=== PATIENT | male | born 1970 | race Caucasian/White ===

== ENCOUNTER 2017-08-03 07:35 | Emergency (ER) | payer BC ==
--- NOTE | 2017-08-03 08:04 | Emergency Department Record ---
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 Patient had a spinning sensation worse with laying down and when he got up today more spinning sensation. Onset/Timin -: Days(s) Timing: Awoke with symptoms History of Same: Yes Improves With: Nothing Worsens With: Nothing - Sameer Coma Scale Eye Response: (4) Open spontaneously Motor Response: (6) Obeys commands Verbal Response: (5) Oriented [place] Total: 15 - Related Data Previous Rx's Medication Instructions Recorded Meclizine HCl [Antivert] 25 mg PO Q8H #20 tablet 08/03/17 Allergies Allergy/AdvReac Type Severity Reaction Status Date / Time lorazepam [From Ativan] Allergy ALTERED Verified 08/03/17 07:46 MENTAL STATUS Travel Screening - Travel/Exposure Within Last 30 Days Have you traveled within the last 30 days?: No - Travel/Exposure Within Last Year Have you traveled outside the [place] in the last year?: No - Additonal Travel Details Have you been exposed to anyone with a communicable illness?: No - Travel Symptoms Symptom Screening: None Review of Systems Reviewed: No additional complaints except as noted below Constitutional: Reports: As per HPI. Denies: Chills, Fever, Malaise, Night sweats, Weakness, Weight change Eyes: Reports: As per HPI. Denies: Eye discharge, Eye pain, Photophobia, Vision change ENT: Reports: As per HPI. Denies: Congestion, Dental pain, Ear pain, Epistaxis , Hearing loss, Throat pain Respiratory: Reports: As per HPI. Denies: Cough, Dyspnea, Hemoptysis, Stridor, Wheezes Cardiovascular: Reports: As per HPI. Denies: Arrhythmia, Chest pain, Dyspnea on exertion, Edema, Murmurs, Orthopnea, Palpitations, Paroxysmal nocturnal dyspnea, Rheumatic Fever, Syncope Endocrine: Reports: As per HPI. Denies: Fatigue, Heat or cold intolerance, Polydipsia, Polyuria Gastrointestinal: Reports: As per HPI. Denies: Abdominal pain, Constipation, Diarrhea, Hematemesis, Hematochezia, Melena, Nausea, Vomiting Genitourinary: Reports: As per HPI. Denies: Dysuria, Frequency, Hematuria, Incontinence, Retention, Testicular pain, Testicular mass, Urgency Musculoskeletal: Reports: As per HPI. Denies: Arthralgia, Back pain, Gout, Joint swelling, Myalgia, Neck pain Skin: Reports: As per HPI. Denies: Bruising, Change in color, Change in hair/ nails, Lesions, Pruritus, Rash Neurological: Reports: As per HPI. Denies: Abnormal gait, Confusion, Headache, Numbness, Paresthesias, Seizure, Tingling, Tremors, Vertigo, Weakness Psychiatric: Reports: As per HPI. Denies: Anxiety, Auditory hallucinations, Depression, Homicidal thoughts, Suicidal thoughts, Visual hallucinations Hematological/Lymphatic: Reports: As per HPI. Denies: Anemia, Blood Clots, Easy bleeding, Easy bruising, Swollen glands Past Medical History - SOCIAL HISTORY Smoking Status: Never smoker Alcohol Use: None Drug Use: None - RESPIRATORY Hx Respiratory Disorders: No - CARDIOVASCULAR Hx Cardio Disorders: Yes Hx Hypertension: Yes - NEURO Hx Neuro Disorders: No - GI Hx GI Disorders: Yes Hx Reflux: Yes - Hx Genitourinary Disorders: Yes Comment:: Right kidney removed related to trauma - ENDOCRINE Hx Endocrine Disorders: No - MUSCULOSKELETAL Hx Musculoskeletal Disorders: Yes Comment:: L5 herniated disc - PSYCH Hx Psych Problems: Yes Hx Behavior Problems: Yes Comment:: bipolar - HEMATOLOGY/ONCOLOGY Hx Hematology/Oncology Disorders: No Family Medical History Any Significant Family History?: Yes Hx Cancer: Mother Hx Diabetes: Grandparents Hx Heart Disease: Father Physical Exam - General General Appearance: Alert, Oriented x3, Cooperative, No acute distress - Head Head exam: Normal inspection - Eye Eye exam: Normal appearance, PERRL Pupils: Normal accommodation - ENT ENT exam: Normal exam, Mucous membranes moist, Normal external ear exam, Normal orophraynx, TM's normal bilaterally Ear exam: Normal external inspection. negative: External canal tenderness Nasal Exam: Normal inspection. negative: Discharge, Sinus tenderness Mouth exam: Normal external inspection, Tongue normal Teeth exam: Normal inspection. negative: Dental caries Throat exam: Normal inspection. negative: Tonsillar erythema, Tonsillar exudate - Neck Neck exam: Normal inspection, Full ROM. negative: Tenderness - Respiratory Respiratory exam: Normal lung sounds bilaterally. negative: Respiratory distress - Cardiovascular Cardiovascular Exam: Regular rate, Normal rhythm, Normal heart sounds - GI/Abdominal GI/Abdominal exam: Soft, Normal bowel sounds. negative: Tenderness - Rectal Rectal exam: Deferred - exam: Deferred - Extremities Extremities exam: Normal inspection, Full ROM, Normal capillary refill. negative: Tenderness - Back Back exam: Reports: Normal inspection, Full ROM. Denies: Muscle spasm, Rash noted, Tenderness - Neurological Neurological exam: Alert, Normal gait, Oriented X3, Reflexes normal - Psychiatric Psychiatric exam: Normal affect, Normal mood - Skin Skin exam: Dry, Intact, Normal color, Warm Course Vital Signs 08/03/17 07:40 Temperature 98.0 F Pulse Rate 102 H Respiratory 20 Rate Blood Pressure 130/92 Pulse Ox 98 - Reevaluation(s) Reevaluation #1: No chest pain and no URI symptoms and no NVD 08/03/17 08:28 Medical Decision Making - Data Complexity MDM Data: EKG Ordered and/or Reviewed (NSR, no acute changes) Disposition Clinical Impression: Substance abuse Hypertension Qualifiers: Hypertension type: unspecified Qualified Code(s): I10 - Essential (primary) hypertension Disposition: Home, Self-Care Condition: (1) Good Instructions: Benign Paroxysmal Positional Vertigo (ED) Additional Instructions: follow up with family in 5 days use antivert three times a day stop cocaine and meth follow up with counciling Prescriptions: Meclizine HCl [Antivert] 25 mg PO Q8H #20 tablet Forms: Patient Portal Access Time of Disposition: 08:27 Quality - Quality Measures Quality Measures: N/A - Blood Pressure Screening Does Patient Have Any of the Following: No Blood Pressure Classification: Hypertensive Reading Systolic Measurement: 130 Diastolic Measurement: 92 Screening for High Blood Pressure: < Pre-Hypertensive BP, F/U Documented > [ G8950] Pre-Hypertensive Follow-up Interventions: Referral to alternative/primary care provider.
== END 2017-08-03 08:34 | disposition home or self-care (01) ==
LOC: ER 07:35
DX: F15.10 Other stimulant abuse, uncomplicated (principal); F14.10 Cocaine abuse, uncomplicated; R42 Dizziness and giddiness; I10 Essential (primary) hypertension
CPT/HCPCS: 93005; 93010; 99284

== ENCOUNTER 2017-08-07 21:38 | Observation (INO) | payer BC ==
[2017-08-07 22:18] LABS: URINE APPEARANCE CLEAR; URINE BILIRUBIN NEGATIVE (NEGATIVE); URINE BLOOD NEGATIVE (NEGATIVE); URINE COLOR YELLOW; URINE GLUCOSE (UA) NEGATIVE (NEGATIVE); URINE KETONE NEGATIVE (NEGATIVE); URINE LEUKOCYTE ESTERASE NEGATIVE (NEGATIVE); URINE NITRITE NEGATIVE (NEGATIVE); URINE PROTEIN NEGATIVE (NEGATIVE); URINE UROBILINOGEN 0.2 E.U./dL (0.20 - 1.00)
[2017-08-07] MEDS ORDERED: 0.9 % SODIUM CHLORIDE 1,000 ML BAG IV ONE (22:32)
[2017-08-07] MEDS ORDERED: HYDROMORPHONE HCL 2 MG/ML VIAL IVP ONE ×2 (22:33→23:24)
[2017-08-07] MEDS ORDERED: ONDANSETRON HCL IV 4 MG/2 ML VIAL IVP ONE (22:33)
[2017-08-07 22:42] LABS: BASO % 0.3 % (0-6); EOS % 2.3 % (0-6); GRAN % 64.1 % (47-80); HEMATOCRIT 41.3 % (42.0-52.0); HEMOGLOBIN 14.4 gm/dl (14.0-18.0); LYMPH % 24.6 % (16-45); MEAN CELL VOLUME 87.3 fl (81-97); MEAN CORPUSCULAR HEMOGLOBIN 30.4 pg (27-33); MEAN CORPUSCULAR HGB CONC 34.9 g/dl (32-36); MEAN PLATELET VOLUME 9.7 fl (7.4-10.4); MONO % 8.7 % (0-9); PLATELET COUNT 308 K/uL (130-400); RED BLOOD COUNT 4.73 M/uL (4.40-5.70); RED CELL DISTRIBUTION WIDTH 12.8 % (11.5-14.5); WHITE BLOOD COUNT W/O DIFF 11.8 K/uL (4.2-12.2)
[2017-08-07 23:01] LABS: ALB/GLOB RATIO 1.3 (1.1-1.8); ALBUMIN 3.7 g/dL (4.0-5.0); ALKALINE PHOSPHATASE 81 U/L (40-129); ALT/SGPT 44 U/L (<41); AST/SGOT 27 U/L (10.0-50.0); BLOOD UREA NITROGEN 12 mg/dL (6-20); CREATININE 0.8 mg/dL (0.7-1.2); EST GLOMERULAR FILTRATION RATE > 60 mL/min; GLUCOSE,RANDOM 129 mg/dL (74-109); LIPASE 111 U/L (13-60); TOTAL PROTEIN 6.6 g/dL (6.6-8.7)
[2017-08-08] MEDS ORDERED: KETOROLAC 30 MG/ML VIAL IVP ONE (01:26)
[2017-08-08] MEDS ORDERED: HYDROMORPHONE HCL 2 MG/ML VIAL IVP ONE (02:18)
--- NOTE | 2017-08-08 02:32 | Emergency Department Record ---
History of Present Illness - General Chief Complaint: Back Pain/Injury Stated Complaint: BACK AND ABDOMINAL PAIN Time Seen by Provider: 08/07/17 22:28 Source: Patient Mode of Arrival: Ambulatory Limitations: No limitations - History of Present Illness Initial Comments: pt has severe abd pain that is constant. he states all week it has been hurting after he eats. no c/v. he does have nausea. he states he always has loose stools after he eats Onset/Timin -: Days(s) Similar Symptoms Previously: Yes Radiation: Abdomen Severity scale (1-10): 7 Quality: Sharp Consistency: Constant Improves With: None Worsens With: Deep breaths/cough Associated Symptoms: Denies other symptoms Treatments Prior to Arrival: NSAIDS - Related Data Allergies Allergy/AdvReac Type Severity Reaction Status Date / Time lorazepam [From Ativan] Allergy ALTERED Verified 08/03/17 07:46 MENTAL STATUS Travel Screening - Travel/Exposure Within Last 30 Days Have you traveled within the last 30 days?: No - Travel Symptoms Symptom Screening: None Review of Systems Reviewed: No additional complaints except as noted below Constitutional: Reports: As per HPI. Denies: Chills, Fever, Malaise, Night sweats, Weakness, Weight change Eyes: Reports: As per HPI. Denies: Eye discharge, Eye pain, Photophobia, Vision change ENT: Reports: As per HPI. Denies: Congestion, Dental pain, Ear pain, Epistaxis , Hearing loss, Throat pain Respiratory: Reports: As per HPI. Denies: Cough, Dyspnea, Hemoptysis, Stridor, Wheezes Cardiovascular: Reports: As per HPI. Denies: Arrhythmia, Chest pain, Dyspnea on exertion, Edema, Murmurs, Orthopnea, Palpitations, Paroxysmal nocturnal dyspnea, Rheumatic Fever, Syncope Endocrine: Reports: As per HPI. Denies: Fatigue, Heat or cold intolerance, Polydipsia, Polyuria Gastrointestinal: Reports: As per HPI, Abdominal pain. Denies: Constipation, Diarrhea, Hematemesis, Hematochezia, Melena, Nausea, Vomiting Genitourinary: Reports: As per HPI. Denies: Dysuria, Frequency, Hematuria, Incontinence, Retention, Testicular pain, Testicular mass, Urgency Musculoskeletal: Reports: As per HPI. Denies: Arthralgia, Back pain, Gout, Joint swelling, Myalgia, Neck pain Skin: Reports: As per HPI. Denies: Bruising, Change in color, Change in hair/ nails, Lesions, Pruritus, Rash Neurological: Reports: As per HPI. Denies: Abnormal gait, Confusion, Headache, Numbness, Paresthesias, Seizure, Tingling, Tremors, Vertigo, Weakness Psychiatric: Reports: As per HPI. Denies: Anxiety, Auditory hallucinations, Depression, Homicidal thoughts, Suicidal thoughts, Visual hallucinations Hematological/Lymphatic: Reports: As per HPI. Denies: Anemia, Blood Clots, Easy bleeding, Easy bruising, Swollen glands Past Medical History - SOCIAL HISTORY Smoking Status: Never smoker - RESPIRATORY Hx Respiratory Disorders: No - CARDIOVASCULAR Hx Cardio Disorders: Yes Hx Hypertension: Yes - NEURO Hx Neuro Disorders: No - GI Hx GI Disorders: Yes Hx Reflux: Yes Comment:: abd hernia - Hx Genitourinary Disorders: Yes Comment:: Right kidney removed related to trauma - ENDOCRINE Hx Endocrine Disorders: No - MUSCULOSKELETAL Hx Musculoskeletal Disorders: Yes Comment:: L5 herniated disc - PSYCH Hx Psych Problems: Yes Hx Behavior Problems: Yes Comment:: bipolar - HEMATOLOGY/ONCOLOGY Hx Hematology/Oncology Disorders: No Family Medical History Any Significant Family History?: Yes Hx Cancer: Mother Hx Diabetes: Grandparents Hx Heart Disease: Father Physical Exam - General General Appearance: Alert, Oriented x3, Cooperative, Mild distress - Head Head exam: Normal inspection - Eye Eye exam: Normal appearance, PERRL, EOMI Pupils: Normal accommodation - ENT ENT exam: Normal exam, Mucous membranes moist, Normal external ear exam, Normal orophraynx Ear exam: Normal external inspection. negative: External canal tenderness Nasal Exam: Normal inspection. negative: Discharge, Sinus tenderness Mouth exam: Normal external inspection, Tongue normal Teeth exam: Normal inspection. negative: Dental caries Throat exam: Normal inspection. negative: Tonsillar erythema, Tonsillar exudate - Neck Neck exam: Normal inspection, Full ROM. negative: Tenderness - Respiratory Respiratory exam: Normal lung sounds bilaterally. negative: Respiratory distress - Cardiovascular Cardiovascular Exam: Regular rate, Normal rhythm, Normal heart sounds - GI/Abdominal GI/Abdominal exam: Soft, Normal bowel sounds, Guarding, Tenderness - Rectal Rectal exam: Deferred - exam: Deferred - Extremities Extremities exam: Normal inspection, Full ROM, Normal capillary refill. negative: Tenderness - Back Back exam: Reports: Normal inspection, Full ROM. Denies: Muscle spasm, Rash noted, Tenderness - Neurological Neurological exam: Alert, CN II-XII intact, Normal gait, Oriented X3 - Psychiatric Psychiatric exam: Normal affect, Normal mood - Skin Skin exam: Dry, Intact, Normal color, Warm Course Vital Signs 08/07/17 08/07/17 08/07/17 21:47 22:49 23:37 Temperature 98.5 F Pulse Rate [ 93 H 88 90 Pulse Ox Probe] Respiratory 24 22 18 Rate Blood Pressure 147/95 [Left Arm] Blood Pressure 127/88 125/89 [Right Arm] Pulse Ox 97 94 L 08/08/17 08/08/17 00:24 01:35 Temperature Pulse Rate [ 95 H 70 Pulse Ox Probe] Respiratory 16 18 Rate Blood Pressure [Left Arm] Blood Pressure 112/79 116/82 [Right Arm] Pulse Ox 96 93 L - Reevaluation(s) Reevaluation #1: 08/08/17 02:36 unable to get pts pain under control without iv dilaudid Medical Decision Making - Lab Data Result diagrams: 08/07/17 22:36 08/07/17 22:36 Lab Results 08/07/17 08/07/17 08/07/17 Range/Units 22:20 22:32 22:36 WBC 11.8 (4.2-12.2) K/uL RBC 4.73 (4.40-5.70) M/uL Hgb 14.4 (14.0-18.0) gm/dl Hct 41.3 L (42.0-52.0) % MCV 87.3 (81-97) fl MCH 30.4 (27-33) pg MCHC 34.9 (32-36) g/dl RDW 12.8 (11.5-14.5) % Plt Count 308 (130-400) K/uL MPV 9.7 (7.4-10.4) fl Gran % 64.1 (47-80) % Lymphocytes % 24.6 (16-45) % Monocytes % 8.7 (0-9) % Eosinophils % 2.3 (0-6) % Basophils % 0.3 (0-6) % Sodium (136-145) mmol/L Potassium (3.4-4.5) mmol/L Chloride (98-107) mmol/L Carbon Dioxide (22-29) mmol/L Anion Gap (7-16) BUN (6-20) mg/dL Creatinine (0.7-1.2) mg/dL Estimated GFR mL/min Random Glucose (74-109) mg/dL Lactic Acid (0.5-2.2) mmol/L Calcium (8.6-10.0) mg/dL Total Bilirubin (0.2-1.0) mg/dL AST (10.0-50.0) U/L ALT (<41) U/L Alkaline Phosphatase (40-129) U/L Total Protein (6.6-8.7) g/dL Albumin (4.0-5.0) g/dL Globulin (1.4-4.8) gm/dL Albumin/Globulin Ratio (1.1-1.8) Lipase (13-60) U/L Urine Color Yellow Cancelled Urine Appearance Clear Cancelled Urine pH 6.0 Cancelled (5.0-8.0) Ur Specific [place] >= 1.030 Cancelled (1.002-1.030) Urine Protein Negative Cancelled (NEGATIVE) Urine Glucose (UA) Negative Cancelled (NEGATIVE) Urine Clinitest Cancelled Urine Ketones Negative Cancelled (NEGATIVE) Urine Blood Negative Cancelled (NEGATIVE) Urine Nitrite Negative Cancelled (NEGATIVE) Urine Bilirubin Negative Cancelled (NEGATIVE) Urine Ictotest Cancelled Prot Sulfosalicylic Acd Cancelled Urine Urobilinogen 0.2 Cancelled (0.20 - 1.00) E.U./dL Ur Leukocyte Esterase Negative Cancelled (NEGATIVE) 08/07/17 08/07/17 Range/Units 22:36 23:43 WBC (4.2-12.2) K/uL RBC (4.40-5.70) M/uL Hgb (14.0-18.0) gm/dl Hct (42.0-52.0) % MCV (81-97) fl MCH (27-33) pg MCHC (32-36) g/dl RDW (11.5-14.5) % Plt Count (130-400) K/uL MPV (7.4-10.4) fl Gran % (47-80) % Lymphocytes % (16-45) % Monocytes % (0-9) % Eosinophils % (0-6) % Basophils % (0-6) % Sodium 141 (136-145) mmol/L Potassium 3.4 (3.4-4.5) mmol/L Chloride 102 (98-107) mmol/L Carbon Dioxide 25.0 (22-29) mmol/L Anion Gap 14.0 (7-16) BUN 12 (6-20) mg/dL Creatinine 0.8 (0.7-1.2) mg/dL Estimated GFR > 60 mL/min Random Glucose 129 H (74-109) mg/dL Lactic Acid 1.4 (0.5-2.2) mmol/L Calcium 8.6 (8.6-10.0) mg/dL Total Bilirubin 0.20 (0.2-1.0) mg/dL AST 27 (10.0-50.0) U/L ALT 44 H (<41) U/L Alkaline Phosphatase 81 (40-129) U/L Total Protein 6.6 (6.6-8.7) g/dL Albumin 3.7 L (4.0-5.0) g/dL Globulin 2.9 (1.4-4.8) gm/dL Albumin/Globulin Ratio 1.3 (1.1-1.8) Lipase 111 H (13-60) U/L Urine Color Urine Appearance Urine pH (5.0-8.0) Ur Specific [place] (1.002-1.030) Urine Protein (NEGATIVE) Urine Glucose (UA) (NEGATIVE) Urine Clinitest Urine Ketones (NEGATIVE) Urine Blood (NEGATIVE) Urine Nitrite (NEGATIVE) Urine Bilirubin (NEGATIVE) Urine Ictotest Prot Sulfosalicylic Acd Urine Urobilinogen (0.20 - 1.00) E.U./dL Ur Leukocyte Esterase (NEGATIVE) Disposition Disposition: Admit Clinical Impression: Intractable abdominal pain Pancreatitis Qualifiers: Chronicity: acute Pancreatitis type: other Acute pancreatitis complication: unspecified Qualified Code(s): K85.80 - Other acute pancreatitis without necrosis or infection Disposition: Still a Patient at [facility] [place] Decision to Admit: Admit from ER Decision to Admit Date: 08/08/17 Decision to Admit Time: 02:38 Forms: Patient Portal Access Quality - Quality Measures Quality Measures: N/A - Blood Pressure Screening Does Patient Have Any of the Following: No Blood Pressure Classification: Pre-Hypertensive BP Reading Systolic Measurement: 116 Diastolic Measurement: 82 Screening for High Blood Pressure: < Pre-Hypertensive BP, F/U Documented > [ G8950] Pre-Hypertensive Follow-up Interventions: Follow-up with rescreen every year.
[2017-08-08] MEDS ORDERED: 0.9 % SODIUM CHLORIDE 1000ML 1,000 ML IV ONE (02:41)
[2017-08-08] MEDS ORDERED: ONDANSETRON HCL IV 4 MG/2 ML VIAL IVP PRN (03:27)
[2017-08-08] MEDS: HYDROMORPHONE HCL 2 MG/ML VIAL IV PRN ×2 (05:22→09:01)
[2017-08-08] MEDS: PANTOPRAZOLE SODIUM 40 MG TABLET PO SCH ×3 (05:23→10:08)
[2017-08-08] MEDS: 0.9 % SODIUM CHLORIDE 1000ML 1,000 ML IV PRN ×3 (05:30→23:24)
[2017-08-08 06:35] LABS: BASO % 0.3 % (0-6); EOS % 3.2 % (0-6); GRAN % 56.4 % (47-80); HEMATOCRIT 40.5 % (42.0-52.0); HEMOGLOBIN 13.7 gm/dl (14.0-18.0); LYMPH % 31.4 % (16-45); MEAN CORPUSCULAR HEMOGLOBIN 30.1 pg (27-33); MEAN CORPUSCULAR HGB CONC 33.8 g/dl (32-36); MEAN PLATELET VOLUME 9.6 fl (7.4-10.4); MONO % 8.7 % (0-9); PLATELET COUNT 296 K/uL (130-400); RED BLOOD COUNT 4.55 M/uL (4.40-5.70); RED CELL DISTRIBUTION WIDTH 12.9 % (11.5-14.5); WHITE BLOOD COUNT W/O DIFF 8.7 K/uL (4.2-12.2)
[2017-08-08 06:54] LABS: ALB/GLOB RATIO 1.3 (1.1-1.8); ALBUMIN 3.5 g/dL (4.0-5.0); ALKALINE PHOSPHATASE 71 U/L (40-129); ALT/SGPT 39 U/L (<41); AST/SGOT 23 U/L (10.0-50.0); BLOOD UREA NITROGEN 12 mg/dL (6-20); CREATININE 0.6 mg/dL (0.7-1.2); EST GLOMERULAR FILTRATION RATE > 60 mL/min; GLUCOSE,RANDOM 109 mg/dL (74-109); LIPASE 65 U/L (13-60); TOTAL PROTEIN 6.3 g/dL (6.6-8.7)
[2017-08-08] MEDS ORDERED: HYDROCODONE/APAP 5/325MG TABLET PO PRN (09:50)
[2017-08-08] MEDS: LOSARTAN POTASSIUM 100 MG TABLET PO SCH (10:06)
[2017-08-08] MEDS: HYDROCHLOROTHIAZIDE 25 MG TABLET PO SCH (10:07)
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
[2017-08-08] MEDS: ENOXAPARIN 40 MG/0.4 ML SYR SQ SCH (11:09)
[2017-08-08] MEDS: DICYCLOMINE HCL 10 MG CAPSULE PO PRN ×2 (11:24→19:42)
[2017-08-08] MEDS: HYDROCODONE/APAP 5/325MG TABLET PO PRN ×3 (11:24→23:20)
[2017-08-09] MEDS: HYDROCODONE/APAP 5/325MG TABLET PO PRN ×2 (06:19→11:42)
[2017-08-09] MEDS: PANTOPRAZOLE SODIUM 40 MG TABLET PO SCH (06:20)
--- NOTE | 2017-08-09 07:57 | CT SCAN REPORT ---
DATE: 08/07/2017. EXAM: EMERGENCY CT SCAN OF THE ABDOMEN AND PELVIS WITHOUT CONTRAST. HISTORY: Low back pain and abdominal pain beginning two days ago. Prior right nephrectomy for trauma. Cholecystectomy. TECHNIQUE: Axial CT scan of the abdomen and pelvis performed without oral or intravenous contrast. Preliminary report provided by [facility]. COMPARISON: None. FINDINGS: Gallbladder not identified consistent with the surgical history. There are also surgical clips in the right renal fossa with absence of the right kidney consistent with the history of nephrectomy. No intrarenal calculi seen in the left kidney with no hydronephrosis or hydroureter on the left. No left ureteral calculus or bladder calculus evident. A small left inguinal hernia containing adipose tissue but no bowel. Evaluation of the bowel and viscera is very limited without oral or intravenous contrast. Given this limitation, no definite hepatic, splenic, adrenal, pancreatic, or left renal mass identified. Minor diverticulosis in the colon, but no diverticulitis is evident. The appendix is visualized and appears negative with no appendicitis identified. There is some mild streaky atelectasis or infiltrate in the right lung base. No free intraperitoneal air or free intraperitoneal fluid evident. IMPRESSION: 1. POSTOPERATIVE CHOLECYSTECTOMY AND RIGHT NEPHRECTOMY. 2. NO LEFT-SIDED URINARY TRACT CALCULI OR HYDRONEPHROSIS EVIDENT. 3. THE APPENDIX IS SEEN AND APPEARS NEGATIVE. 4. A SMALL LEFT INGUINAL HERNIA CONTAINING ADIPOSE TISSUE BUT NO BOWEL. 5. MINOR DIVERTICULOSIS BUT NO DIVERTICULITIS EVIDENT. JOB NUMBER: [id number] [facility]
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
[2017-08-09] MEDS: ENOXAPARIN 40 MG/0.4 ML SYR SQ SCH (10:12)
[2017-08-09] MEDS: LOSARTAN POTASSIUM 100 MG TABLET PO SCH (10:16)
[2017-08-09] MEDS: HYDROCHLOROTHIAZIDE 25 MG TABLET PO SCH (10:19)
[2017-08-09] MEDS: DICYCLOMINE HCL 10 MG CAPSULE PO PRN (11:42)
--- NOTE | 2017-08-09 12:21 | Medical Records Consult ---
DATE OF CONSULTATION: 08/08/2017 CHIEF COMPLAINT: Abdominal pain. HISTORY OF PRESENT ILLNESS: The patient is a 46-year-old gentleman who presented with a several-day history of abdominal discomfort. He stated it was a crampy type of discomfort located throughout the central abdomen without radiation. He denied any associated nausea, vomiting, diarrhea, melena, hematochezia, or hematemesis. He stated it began after eating a meal on Saturday and then intermittently worsened after meals. He denies any bloating or cramping. He has not had any similar issues. He had a colonoscopy many years ago but has not had any recent exams. He did have removal of right kidney as a result of trauma. He also has had a prior cholecystectomy. Upon further questioning, it appears that the patient had described some radiation to his back but he denied that to me. PAST MEDICAL HISTORY: Hypertension. PAST SURGICAL HISTORY: As previously mentioned, he has had cholecystectomy as well as right nephrectomy. REVIEW OF SYSTEMS: Noted per the history and physical. He was afebrile in the emergency department. Review of systems otherwise was unremarkable and noted per the H&P that was cosigned by Dr. Acosta as well as Carri rCews, nurse practitioner. ALLERGIES: LORAZEPAM. HOME MEDICATIONS: He is taking hydrochlorothiazide, losartan, and also takes a PPI for GERD. FAMILY HISTORY: Noncontributory. SOCIAL HISTORY: No travel exposure noted. PHYSICAL EXAMINATION: VITAL SIGNS: Temperature 97.7, pulse 71, respirations 16, blood pressure 126/94. GENERAL: He is awake, alert, oriented x3, nontoxic in appearance. Appears to be in no acute distress. HEAD/NECK: Head is normocephalic and atraumatic. Skin was warm and dry. No jaundice noted. Extraocular movements are intact. No scleral icterus or conjunctival injection was appreciable. Neck was supple. Trachea midline. No appreciable thyromegaly. HEART: Regular rate and rhythm without murmur. LUNGS: Clear to auscultation without wheezes, rales, or rhonchi. ABDOMEN: Soft. Positive bowel sounds. There is no guarding, rebound, or rigidity. There is diffuse tenderness but the abdomen is soft. There is no tympany noted. There is a laparotomy scar in the midline which is well healed. I could appreciate no hernias. EXTREMITIES: No clubbing, cyanosis, or edema. LABORATORY DATA: White count 8.7, hemoglobin 13.7, hematocrit 40.5, platelets 296. Sodium 142, potassium 4.2, chloride 107, CO2 26, BUN 12, creatinine 0.6. Lipase was slightly elevated at 116 and now is 65. Liver chemistries are otherwise normal although initially ALT was [address] now is 39. CT of the abdomen demonstrates prior cholecystectomy and right nephrectomy. There are no acute findings otherwise noted. IMPRESSION: 1. Abdominal pain of unclear etiology, perhaps a viral enteritis, irritable bowel, versus occult inflammatory bowel disease and ulcer disease. There is no obvious evidence of pancreatitis but will need to monitor the patient clinically. 2. Hypertension. RECOMMENDATIONS: Would suggest the patient undergo an upper and lower endoscopy. This will need to be scheduled at earliest availability. As always, thank you for allowing me to participate in the healthcare of your patient. CC: MD Franci Greenwood MD [facility]ENTERReed
== END 2017-08-09 14:38 | disposition home or self-care (01) ==
LOC: ER 21:38 → MEDSURG 08-08 02:55
PROVIDERS: ADMIT Internal Medicine; ATTEND Internal Medicine
DX: I10 Essential (primary) hypertension (principal); K21.9 Gastro-esophageal reflux disease without esophagitis; Z90.5 Acquired absence of kidney; K52.9 Noninfective gastroenteritis and colitis, unspecified
CPT/HCPCS: 99285 ×2; 96376; 96374; 96375; 83605; 83690 ×2; 85025 ×2; 80053 ×2; 81003; 74176; G0378 ×2; J1885; J2405; J1170 ×2; 99217; 99220; J1650; J7030

== ENCOUNTER 2017-08-11 04:39 | Emergency (ER) | payer BC ==
[2017-08-11] MEDS ORDERED: 0.9 % SODIUM CHLORIDE 1,000 ML BAG IV ONE (05:03)
[2017-08-11] MEDS ORDERED: MAGNESIUM HYDROXIDE/AL HYDROX 30 ML, LIDOCAINE VISC 2% 200 MG PO ONE ×2 (05:03)
[2017-08-11] MEDS ORDERED: ONDANSETRON HCL IV 4 MG/2 ML VIAL IV ONE (05:03)
--- NOTE | 2017-08-11 05:12 | Emergency Department Record ---
History of Present Illness - General Chief Complaint: Abdominal Pain Stated Complaint: ABDOMINAL PAIN Time Seen by Provider: 08/11/17 04:52 Source: Patient Mode of Arrival: Ambulatory Limitations: No limitations - History of Present Illness Initial Comments: pt just discharged from hospital for abd pain without clear etiology. pt is scheduled to be scoped by dr medina in 1-2wks. pt states pain starts after he eats. it becomes significant and he feels bloated . he has nausea but denies v /c/d. he denies any change in the color of his stool MD Complaint: Abdominal pain Onset/Timin -: Week(s) Location: Diffuse, LLQ, RLQ Radiation: Back Severity: Moderate Severity scale (1-10): 9 Consistency: Constant Improves With: Nothing Worsens With: Nothing Associated Symptoms: Denies other symptoms, Nausea - Related Data Home Medications Medication Instructions Recorded Confirmed Last Taken Hydrocodone/Acetaminophen 1 tab PO DAILY 08/11/17 08/11/17 Unknown [Hydrocodone/Acetaminophen 5mg/325mg] Previous Rx's Medication Instructions Recorded Dicyclomine HCl [Bentyl] 10 mg PO QIDACHS PRN #30 cap 08/09/17 Allergies Allergy/AdvReac Type Severity Reaction Status Date / Time lorazepam [From Ativan] Allergy ALTERED Verified 08/03/17 07:46 MENTAL STATUS Travel Screening - Travel/Exposure Within Last 30 Days Have you traveled within the last 30 days?: No - Travel/Exposure Within Last Year Have you traveled outside the [place] in the last year?: No - Additonal Travel Details Have you been exposed to anyone with a communicable illness?: No - Travel Symptoms Symptom Screening: None Review of Systems Reviewed: No additional complaints except as noted below Constitutional: Reports: As per HPI. Denies: Chills, Fever, Malaise, Night sweats, Weakness, Weight change Eyes: Reports: As per HPI. Denies: Eye discharge, Eye pain, Photophobia, Vision change ENT: Reports: As per HPI. Denies: Congestion, Dental pain, Ear pain, Epistaxis , Hearing loss, Throat pain Respiratory: Reports: As per HPI. Denies: Cough, Dyspnea, Hemoptysis, Stridor, Wheezes Cardiovascular: Reports: As per HPI. Denies: Arrhythmia, Chest pain, Dyspnea on exertion, Edema, Murmurs, Orthopnea, Palpitations, Paroxysmal nocturnal dyspnea, Rheumatic Fever, Syncope Endocrine: Reports: As per HPI. Denies: Fatigue, Heat or cold intolerance, Polydipsia, Polyuria Gastrointestinal: Reports: As per HPI. Denies: Abdominal pain, Constipation, Diarrhea, Hematemesis, Hematochezia, Melena, Nausea, Vomiting Genitourinary: Reports: As per HPI. Denies: Dysuria, Frequency, Hematuria, Incontinence, Retention, Testicular pain, Testicular mass, Urgency Musculoskeletal: Reports: As per HPI. Denies: Arthralgia, Back pain, Gout, Joint swelling, Myalgia, Neck pain Skin: Reports: As per HPI. Denies: Bruising, Change in color, Change in hair/ nails, Lesions, Pruritus, Rash Neurological: Reports: As per HPI. Denies: Abnormal gait, Confusion, Headache, Numbness, Paresthesias, Seizure, Tingling, Tremors, Vertigo, Weakness Psychiatric: Reports: As per HPI. Denies: Anxiety, Auditory hallucinations, Depression, Homicidal thoughts, Suicidal thoughts, Visual hallucinations Hematological/Lymphatic: Reports: As per HPI. 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 - ENDOCRINE Hx Endocrine Disorders: No - MUSCULOSKELETAL Hx Musculoskeletal Disorders: Yes Comment:: L5 herniated disc - PSYCH Hx Psych Problems: Yes Hx Behavior Problems: Yes Comment:: bipolar - HEMATOLOGY/ONCOLOGY Hx Hematology/Oncology Disorders: No Family Medical History Any Significant Family History?: No Hx Cancer: Mother, Grandparents Hx Diabetes: Grandparents Hx Heart Disease: Father Physical Exam - General General Appearance: Alert, Oriented x3, Cooperative, Mild distress - Head Head exam: Normal inspection - Eye Eye exam: Normal appearance, PERRL, EOMI Pupils: Normal accommodation - ENT ENT exam: Normal exam, Mucous membranes moist, Normal external ear exam, Normal orophraynx Ear exam: Normal external inspection. negative: External canal tenderness Nasal Exam: Normal inspection. negative: Discharge, Sinus tenderness Mouth exam: Normal external inspection, Tongue normal Teeth exam: Normal inspection. negative: Dental caries Throat exam: Normal inspection. negative: Tonsillar erythema, Tonsillar exudate - Neck Neck exam: Normal inspection, Full ROM. negative: Tenderness - Respiratory Respiratory exam: Normal lung sounds bilaterally. negative: Respiratory distress - Cardiovascular Cardiovascular Exam: Regular rate, Normal rhythm, Normal heart sounds - GI/Abdominal GI/Abdominal exam: Soft, Normal bowel sounds, Distended, Guarding, Tenderness - Rectal Rectal exam: Deferred - exam: Deferred - Extremities Extremities exam: Normal inspection, Full ROM, Normal capillary refill. negative: Tenderness - Back Back exam: Reports: Normal inspection, Full ROM. Denies: Muscle spasm, Rash noted, Tenderness - Neurological Neurological exam: Alert, CN II-XII intact, Normal gait, Oriented X3 - Psychiatric Psychiatric exam: Normal affect, Normal mood - Skin Skin exam: Dry, Intact, Normal color, Warm Course Vital Signs 08/11/17 04:41 Temperature 98.8 F Pulse Rate 84 Respiratory 20 Rate Blood Pressure 169/106 Pulse Ox 94 L - Reevaluation(s) Reevaluation #1: 08/11/17 06:54 gi cocktail did not help. pt resting after the dilaudid. care being turned over to dr johnson Medical Decision Making - Lab Data Result diagrams: 08/11/17 04:50 08/11/17 04:50 Disposition Forms: Patient Portal Access Quality - Quality Measures Quality Measures: N/A - Blood Pressure Screening Does Patient Have Any of the Following: No Blood Pressure Classification: Hypertensive Reading Systolic Measurement: 169 Diastolic Measurement: 106 Screening for High Blood Pressure: < First Hypertensive BP, F/U Documented > [ G8950] First Hypertensive Follow-up Interventions: Follow-up with rescreen GT 1 day and LT 4 weeks.
[2017-08-11] MEDS ORDERED: HYDROMORPHONE HCL 2 MG/ML VIAL IVP ONE ×2 (05:15→08:22)
[2017-08-11 05:18] LABS: BASO % 0.2 % (0-6); EOS % 5.7 % (0-6); GRAN % 58.3 % (47-80); HEMATOCRIT 38.2 % (42.0-52.0); HEMOGLOBIN 13.1 gm/dl (14.0-18.0); LYMPH % 28.4 % (16-45); MEAN CELL VOLUME 90.3 fl (81-97); MEAN CORPUSCULAR HGB CONC 34.3 g/dl (32-36); MEAN PLATELET VOLUME 10.1 fl (7.4-10.4); MONO % 7.4 % (0-9); PLATELET COUNT 230 K/uL (130-400); RED BLOOD COUNT 4.23 M/uL (4.40-5.70); RED CELL DISTRIBUTION WIDTH 12.5 % (11.5-14.5); WHITE BLOOD COUNT W/O DIFF 6.5 K/uL (4.2-12.2)
[2017-08-11 05:19] LABS: MEAN CORPUSCULAR HEMOGLOBIN 30.9 pg (27-33)
[2017-08-11 05:23] LABS: BLOOD UREA NITROGEN 12 mg/dL (6-20); CREATININE 0.7 mg/dL (0.7-1.2); EST GLOMERULAR FILTRATION RATE > 60 mL/min; TOTAL PROTEIN 7.3 g/dL (6.6-8.7)
[2017-08-11 05:25] LABS: GLUCOSE,RANDOM 136 mg/dL (74-109)
[2017-08-11 05:28] LABS: ALKALINE PHOSPHATASE 129 U/L (40-129); ALT/SGPT 152 U/L (<41); AST/SGOT 114 U/L (10.0-50.0); LIPASE 55 U/L (13-60)
[2017-08-11 05:29] LABS: BILIRUBIN,DIRECT < 0.2 mg/dL (0-0.3)
[2017-08-11 05:41] LABS: URINE APPEARANCE CLEAR; URINE BILIRUBIN NEGATIVE (NEGATIVE); URINE BLOOD NEGATIVE (NEGATIVE); URINE COLOR YELLOW; URINE GLUCOSE (UA) NEGATIVE (NEGATIVE); URINE KETONE NEGATIVE (NEGATIVE); URINE LEUKOCYTE ESTERASE NEGATIVE (NEGATIVE); URINE NITRITE NEGATIVE (NEGATIVE); URINE PROTEIN NEGATIVE (NEGATIVE); URINE UROBILINOGEN 0.2 E.U./dL (0.20 - 1.00)
--- NOTE | 2017-08-11 07:08 | Emergency Department Record ---
History of Present Illness - General Chief Complaint: Abdominal Pain Stated Complaint: ABDOMINAL PAIN Time Seen by Provider: 08/11/17 04:52 Source: Patient Mode of Arrival: Ambulatory Limitations: No limitations - History of Present Illness Initial Comments: took over from Dr Neumann at 7 am and patient waiting for CT of abd with contrast and he had a GI cocktail and one of dilaudid. and pain is manageable now. pain worse with eating and he was at [facility] and discharged 2 days ago. previous history of cocaine abuse. He used cocaine and meth last about 08/03/2017. he states not using now. Patient states his primary Dr. Gautam has told him his liver enzymes have been up. His abdominal pain is located Left lower quad and epigastric and he is using bentyl 10 mg QID and norco and pain was still bad and came to the ED. He is also taking omeprazole 20 mg per day. patient was given norco 5 mg pills #18 2 days ago[address] Primary is Dr. Gautam in [place] Complaint: Abdominal pain Onset/Timin -: Week(s) Location: Diffuse, LLQ, RLQ Radiation: Back Severity: Moderate Severity scale (1-10): 9 Consistency: Constant Improves With: Nothing Worsens With: Nothing Associated Symptoms: Denies other symptoms, Nausea - Related Data Home Medications Medication Instructions Recorded Confirmed Last Taken Hydrocodone/Acetaminophen 1 tab PO DAILY 08/11/17 08/11/17 Unknown [Hydrocodone/Acetaminophen 5mg/325mg] Previous Rx's Medication Instructions Recorded Dicyclomine HCl [Bentyl] 10 mg PO QIDACHS PRN #30 cap 08/09/17 Dicyclomine HCl [Bentyl] 10 mg PO QID #30 cap 08/11/17 Omeprazole 20 mg PO BID #30 brenda. 08/11/17 Sucralfate [Carafate] 1 gm PO QID #40 tablet 08/11/17 Allergies Allergy/AdvReac Type Severity Reaction Status Date / Time lorazepam [From Ativan] Allergy ALTERED Verified 08/03/17 07:46 MENTAL STATUS Travel Screening - Travel/Exposure Within Last 30 Days Have you traveled within the last 30 days?: No - Travel/Exposure Within Last Year Have you traveled outside the [place] in the last year?: No - Additonal Travel Details Have you been exposed to anyone with a communicable illness?: No - Travel Symptoms Symptom Screening: None Review of Systems Reviewed: No additional complaints except as noted below Constitutional: Reports: As per HPI. Denies: Chills, Fever, Malaise, Night sweats, Weakness, Weight change Eyes: Reports: As per HPI. Denies: Eye discharge, Eye pain, Photophobia, Vision change ENT: Reports: As per HPI. Denies: Congestion, Dental pain, Ear pain, Epistaxis , Hearing loss, Throat pain Respiratory: Reports: As per HPI. Denies: Cough, Dyspnea, Hemoptysis, Stridor, Wheezes Cardiovascular: Reports: As per HPI. Denies: Arrhythmia, Chest pain, Dyspnea on exertion, Edema, Murmurs, Orthopnea, Palpitations, Paroxysmal nocturnal dyspnea, Rheumatic Fever, Syncope Endocrine: Reports: As per HPI. Denies: Fatigue, Heat or cold intolerance, Polydipsia, Polyuria Gastrointestinal: Reports: As per HPI, Abdominal pain, Nausea. Denies: Constipation, Diarrhea, Hematemesis, Hematochezia, Melena, Vomiting Genitourinary: Reports: As per HPI. Denies: Dysuria, Frequency, Hematuria, Incontinence, Retention, Testicular pain, Testicular mass, Urgency Musculoskeletal: Reports: As per HPI. Denies: Arthralgia, Back pain, Gout, Joint swelling, Myalgia, Neck pain Skin: Reports: As per HPI. Denies: Bruising, Change in color, Change in hair/ nails, Lesions, Pruritus, Rash Neurological: Reports: As per HPI. Denies: Abnormal gait, Confusion, Headache, Numbness, Paresthesias, Seizure, Tingling, Tremors, Vertigo, Weakness Psychiatric: Reports: As per HPI. Denies: Anxiety, Auditory hallucinations, Depression, Homicidal thoughts, Suicidal thoughts, Visual hallucinations Hematological/Lymphatic: Reports: As per HPI. 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 - ENDOCRINE Hx Endocrine Disorders: No - MUSCULOSKELETAL Hx Musculoskeletal Disorders: Yes Comment:: L5 herniated disc - PSYCH Hx Psych Problems: Yes Hx Behavior Problems: Yes Comment:: bipolar - HEMATOLOGY/ONCOLOGY Hx Hematology/Oncology Disorders: No Family Medical History Any Significant Family History?: No Hx Cancer: Mother, Grandparents Hx Diabetes: Grandparents Hx Heart Disease: Father Physical Exam - General General Appearance: Alert, Oriented x3 Limitations: No limitations - Head Head exam: Normal inspection - Eye Eye exam: Normal appearance, PERRL Pupils: Normal accommodation - ENT ENT exam: Normal exam, Mucous membranes moist, Normal external ear exam, Normal orophraynx, TM's normal bilaterally Ear exam: Normal external inspection. negative: External canal tenderness Nasal Exam: Normal inspection. negative: Discharge, Sinus tenderness Mouth exam: Normal external inspection, Tongue normal Teeth exam: Normal inspection. negative: Dental caries Throat exam: Normal inspection. negative: Tonsillar erythema, Tonsillar exudate - Neck Neck exam: Normal inspection, Full ROM. negative: Tenderness - Respiratory Respiratory exam: Normal lung sounds bilaterally. negative: Respiratory distress - Cardiovascular Cardiovascular Exam: Regular rate, Normal rhythm, Normal heart sounds - GI/Abdominal GI/Abdominal exam: Soft, Normal bowel sounds, Tenderness (pain left lower quad and epigastric , No rebound) - Rectal Rectal exam: Deferred - exam: Deferred - Extremities Extremities exam: Normal inspection, Full ROM, Normal capillary refill. negative: Tenderness - Back Back exam: Reports: Normal inspection, Full ROM. Denies: Muscle spasm, Rash noted, Tenderness - Neurological Neurological exam: Alert, Normal gait, Oriented X3, Reflexes normal - Psychiatric Psychiatric exam: Normal affect, Normal mood - Skin Skin exam: Dry, Intact, Normal color, Warm Course Vital Signs 08/11/17 08/11/17 04:41 05:51 Temperature 98.8 F Pulse Rate 84 Pulse Rate [ 82 [employer] ] Respiratory 20 20 Rate Blood Pressure 169/106 Blood Pressure 142/109 [Left Arm] Pulse Ox 94 L 97 - Reevaluation(s) Reevaluation #1: lytic lesium left side unchanged Bone scan may be beneficial. 08/11/17 09:07 Reevaluation #2: 08/11/17 09:44 pain is managable and better. Medical Decision Making - Data Complexity MDM Data: Labs Ordered and/or Reviewed (liver enzymes up), X-Ray Ordered and/or Reviewed (CT scan no acute changes, atelectasis lower lung , small nodule lower left lung 5 mm unchanged,liver unremarkable and bile ducts not dilated and kidney removed. few diverticuli, lytic lesion illium ) - Lab Data Result diagrams: 08/11/17 04:50 08/11/17 04:50 Lab Results 08/11/17 08/11/17 08/11/17 Range/Units 04:50 04:50 05:35 WBC 6.5 (4.2-12.2) K/uL RBC 4.23 L (4.40-5.70) M/uL Hgb 13.1 L (14.0-18.0) gm/dl Hct 38.2 L (42.0-52.0) % MCV 90.3 (81-97) fl MCH 30.9 (27-33) pg MCHC 34.3 (32-36) g/dl RDW 12.5 (11.5-14.5) % Plt Count 230 (130-400) K/uL MPV 10.1 (7.4-10.4) fl Gran % 58.3 (47-80) % Lymphocytes % 28.4 (16-45) % Monocytes % 7.4 (0-9) % Eosinophils % 5.7 (0-6) % Basophils % 0.2 (0-6) % Sodium 139 (136-145) mmol/L Potassium 4.1 (3.4-4.5) mmol/L Chloride 102 (98-107) mmol/L Carbon Dioxide 25.0 (22-29) mmol/L Anion Gap 12.0 (7-16) BUN 12 (6-20) mg/dL Creatinine 0.7 (0.7-1.2) mg/dL Estimated GFR > 60 mL/min Random Glucose 136 H (74-109) mg/dL Calcium 8.7 (8.6-10.0) mg/dL Total Bilirubin 0.20 (0.2-1.0) mg/dL Direct Bilirubin < 0.2 (0-0.3) mg/dL AST 114 H (10.0-50.0) U/L ALT 152 H (<41) U/L Alkaline Phosphatase 129 (40-129) U/L Total Protein 7.3 (6.6-8.7) g/dL Albumin 4.0 (4.0-5.0) g/dL Lipase 55 (13-60) U/L Urine Color Yellow Urine Appearance Clear Urine pH 6.5 (5.0-8.0) Ur Specific [place] 1.020 (1.002-1.030) Urine Protein Negative (NEGATIVE) Urine Glucose (UA) Negative (NEGATIVE) Urine Ketones Negative (NEGATIVE) Urine Blood Negative (NEGATIVE) Urine Nitrite Negative (NEGATIVE) Urine Bilirubin Negative (NEGATIVE) Urine Urobilinogen 0.2 (0.20 - 1.00) E.U./dL Ur Leukocyte Esterase Negative (NEGATIVE) Disposition Clinical Impression: Elevated liver enzymes Abdominal pain Qualifiers: Abdominal location: left lower quadrant Qualified Code(s): R10.32 - Left lower quadrant pain Gastritis Qualifiers: Gastritis type: unspecified gastritis Chronicity: acute Gastritis bleeding: without bleeding Qualified Code(s): K29.00 - Acute gastritis without bleeding Disposition: Home, Self-Care Condition: (1) Good Additional Instructions: follow up with Dr. Gautam in 2 days increase omeprazole to twice a day If abd pain worse go to [facility] ED for evaluation start carafate 1 gm before meals and bedtime use norco for breakthrough pain sparely because of previous substance abuse problem. continue bentyl(dicyclomine) four times a day bland diet and fluids hepatitis screen sent out and will be back in 2-3 days. follow through on EGD and colonoscopy which is being set up by [facility] specilaty clinic and if you don't get an appointment in 2 days call them. Prescriptions: Dicyclomine HCl [Bentyl] 10 mg PO QID #30 cap Omeprazole 20 mg PO BID #30 cap. Sucralfate [Carafate] 1 gm PO QID #40 tablet Forms: Patient Portal Access Time of Disposition: 09:43 Quality - Quality Measures Quality Measures: N/A - Blood Pressure Screening Does Patient Have Any of the Following: No Blood Pressure Classification: Hypertensive Reading Systolic Measurement: 169 Diastolic Measurement: 106 Screening for High Blood Pressure: < Pre-Hypertensive BP, F/U Documented > [ G8950] Pre-Hypertensive Follow-up Interventions: Referral to alternative/primary care provider.
[2017-08-11 08:03] LABS: AMPHETAMINE SCREEN URINE NOT DETECTED; BARBITURATE SCREEN URINE NOT DETECTED; BENZODIAZEPINE SCREEN URINE NOT DETECTED; COCAINE SCREEN URINE NOT DETECTED; METHADONE SCREEN URINE NOT DETECTED; METHAMPHETAMINE SCREEN NOT DETECTED; OPIATE SCREEN URINE NOT DETECTED; OXYCODONE SCREEN URINE NOT DETECTED; PHENCYCLIDINE SCREEN URINE NOT DETECTED; PROPOXYPHENE SCREEN URINE NOT DETECTED; THC SCREEN URINE NOT DETECTED; TRICYCLIC ANTIDEPRESSANT SCRN NOT DETECTED
[2017-08-11] MEDS ORDERED: DICYCLOMINE HCL 10 MG/ML AMPUL IM ONE (08:18)
[2017-08-11 22:05] LABS: HEP A AB IGM Nonreactive (Nonreactive); HEPATITIS B CORE ANTIBODY,IGM Nonreactive (Nonreactive); HEPATITIS B SURFACE ANTIGEN Nonreactive (Nonreactive); HEPATITIS C VIRUS ANTIBODY Nonreactive (Nonreactive)
--- NOTE | 2017-08-12 07:33 | CT SCAN REPORT ---
EXAM: CT OF THE ABDOMEN AND PELVIS HISTORY: LEFT LOWER QUADRANT PAIN FOR SEVEN DAYS. TECHNIQUE: CT of the abdomen and pelvis was performed following intravenous and oral contrast administration. 100 ml of Omnipaque 300 contrast are used for this examination. Comparison: CT of the abdomen and pelvis 08/07/17. FINDINGS: Linear plate like atelectasis or infiltrate is present at the right lung base. This is similar to the patient's previous examination. New linear plate like atelectasis is seen in the lower left lung. There is a small nodule in the lower left lung measuring about 5 mm in size. This is unchanged. The liver is unremarkable. The spleen is unremarkable. The pancreas is unremarkable. The gallbladder is surgically absent. The bile ducts are not dilated. The adrenal glands are unremarkable. There has been a right nephrectomy. No residual or recurrent mass in the right renal fossa. There is normal left renal kidney function. No left renal mass or hydronephrosis. No aortic aneurysm. No periaortic mass or adenopathy. There are no dilated bowel loops. A few diverticula are present in the descending and sigmoid colon. No CT evidence for diverticulitis. The appendix is unremarkable. No pelvic mass, abscess, or adenopathy. No free air or free fluid. There is a fat containing left inguinal hernia similar to the previous examination. There are at least two small hernias in the anterior abdominal wall. These are best seen on axial image 70 of 199 and axial image 85 of 199. These contain only fat. There is no fracture or acute osseous abnormality identified. There is a 1.4 cm round area of lucency in the left ileum seen on image 139 of 199 similar to the previous study. The etiology is uncertain. A bone scan may be of benefit. IMPRESSION: 1. MINOR DIVERTICULOSIS WITHOUT CT EVIDENCE FOR DIVERTICULITIS. 2. FAT CONTAINING LEFT INGUINAL HERNIA AND TWO SMALL FAT CONTAINING HERNIAS IN THE ANTERIOR ABDOMINAL WALL. 3. PRIOR RIGHT NEPHRECTOMY. 4. UNREMARKABLE APPEARANCE OF THE LEFT KIDNEY. 5. BIBASILAR ATELECTASIS OR INFILTRATE. 6. SMALL NODULE AT THE LEFT LUNG BASE ABOUT [address] OF THE THORAX COULD BE PERFORMED FOR FURTHER ASSESSMENT. 7. 1.4 CM LUCENT LESION IN THE LEFT ILEUM SIMILAR TO THE PREVIOUS STUDY OF UNCERTAIN ETIOLOGY. BONE SCAN SUGGESTED FOR FURTHER ASSESSMENT. MRI MIGHT ALSO BE OF BENEFIT. 8. SEE ABOVE FOR FULL DISCUSSION. JOB NUMBER: [id number] [facility]
== END 2017-08-11 10:02 | disposition home or self-care (01) ==
LOC: ER 04:39
DX: K29.00 Acute gastritis without bleeding (principal); R94.5 Abnormal results of liver function studies; R10.32 Left lower quadrant pain; R11.0 Nausea; R91.1 Solitary pulmonary nodule; M54.5 Low back pain; I10 Essential (primary) hypertension
CPT/HCPCS: 99284 ×2; 96376; 96374; 96372; 96375; 83690; 85025; 80076; 80048; 81003; 80305; 74177; Q9967; J2405; J1170; J7030

== ENCOUNTER 2017-08-23 08:59 | Day surgery (SDC) | payer BC ==
[2017-08-23] MEDS ORDERED: PROPOFOL 10 MG/ML VIAL IV ONE (09:00)
[2017-08-23] MEDS ORDERED: LIDOCAINE 2% MDV (20MG/ML) 20ML VIAL IV ONE (09:00)
[2017-08-23] MEDS ORDERED: FENTANYL PF 100MCG/2ML VIAL IV ONE (09:00)
--- NOTE | 2017-08-26 13:40 | Operative Note ---
DATE OF SURGERY: 08/23/2017 SURGEON: Edel Rodriguez MD OPERATION: 1. ESOPHAGOGASTRODUODENOSCOPY. 2. COLONOSCOPY. INDICATIONS: This is a 47-year-old male with history of abdominal pain and gastroesophageal reflux symptoms who presented for both esophagogastroduodenoscopy and colonoscopy. POSTOPERATIVE DIAGNOSES: 1. Normal esophagus. 2. Mild gastritis. 3. Multiple gastric polyps. 4. Normal duodenum. 5. Normal colon and terminal ileum mucosa with no neoplastic or ulcerative lesions. ANESTHESIA: Sedation is per Anesthesia. Pulse oximetry was monitored throughout the procedures to maintain O2 saturation of 90% or greater. Supplemental oxygen was administered via nasal cannula. Cardiac and vital signs were monitored throughout the duration of the procedures, and they were stable. The procedures of esophagogastroduodenoscopy and colonoscopy and risks and benefits of the procedures, including the risk of bleeding and perforation, among others, were explained to the patient who voiced understanding and agreed to have the procedures done. Physical examination was performed, and the patient was found stable for sedation. PROCEDURE: The patient was placed in the left lateral position. Sedation was initiated. A plastic bite block was inserted into the oral cavity. The Olympus [id number] gastroscope was introduced into the oral cavity and advanced to the proximal esophagus without difficulty. The esophageal mucosa was carefully examined upon introduction of the gastroscope. The proximal, mid, and distal esophageal mucosa appeared normal. The gastroscope was then advanced into the stomach, and surveillance of the stomach revealed diffuse erythema along the gastric body and antrum with multiple gastric fundal polyps. The gastroscope was then advanced to the descending duodenum without difficulty. The duodenal bulb and descending duodenum appeared normal. The gastroscope was then withdrawn into the stomach and retroflexion was performed. There were no other lesions noted. The gastroscope was then straightened and withdrawn while carefully examining the gastric and esophageal mucosa. No other lesions noted. Multiple duodenal and gastric biopsies were obtained. Multiple polyps were removed with the aid of snare cautery and retrieval net. The gastroscope was then withdrawn and the procedure was terminated. He tolerated the procedure well without any immediate complications. He remained with stable vital signs. He was repositioned for colonoscopy. A digital rectal exam was performed and showed some mild external hemorrhoids with no palpable rectal masses. An Olympus PCF-180AL colonoscope was then inserted into the rectum under direct visualization. It was advanced to the cecum without difficulty. The ileocecal valve and appendiceal orifice were identified and photographed. The colonic mucosa was carefully examined upon introduction of the colonoscope. There were no lesions noted. The ileocecal valve was intubated and the terminal ileal mucosa was inspected for about 10 cm and it appeared normal. The colonoscope was then withdrawn while carefully examining the colonic mucosal surfaces. No lesions were noted. Random biopsies were obtained to rule out microscopic colitis. In the rectum, retroflexion was performed and grade 1 internal hemorrhoids were noted. The colonoscope was then withdrawn and the procedure was terminated. The patient tolerated the procedure well without any immediate complications. He remained with stable vital signs and was transferred to the recovery room. RECOMMENDATIONS: 1. The patient should be on a high-fiber diet. 2. The patient is to follow up with Dr. Celestino Phan in the office. Thank you for allowing me to participate in the care of your patient. CC: Franci Gautam MD [facility]ITAL[facility]ed
== END 2017-08-23 11:00 | disposition home or self-care (01) ==
LOC: HOP 08:59
PROVIDERS: ATTEND Internal Medicine Gastroenterology
DX: K21.9 Gastro-esophageal reflux disease without esophagitis (principal); R10.9 Unspecified abdominal pain; K31.7 Polyp of stomach and duodenum; K29.70 Gastritis, unspecified, without bleeding; K64.0 First degree hemorrhoids
CPT/HCPCS: 00813; 43235; G0121